=== PATIENT | male | born 1970 | race Caucasian/White ===

== ENCOUNTER 2016-06-30 15:16 | Emergency (ER) | payer BC, OTHER ==
[2016-06-30] MEDS ORDERED: NS 500 ML IV ONE (15:22)
--- NOTE | 2016-06-30 15:26 | EDPHY ---
H & P HPI/ROS: CHIEF COMPLAINT: Patient the fall memory loss, possible trauma HISTORY OF PRESENT ILLNESS: Patient is a 45-year-old male who presents to the emergency department via EMS. The patient was found in [place] trees while [place] at [employer]. Patient does not know what happened. 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 EMS transported the patient to the emergency department. Patient does not recall events in route. He denied complaints to EMS. His glucose was 117. The patient's did see him [place] the bottom [place] the [place]. She had lost him on the way down. She states that he has had 6 drinks today. The patient is without complaint. No headache or neck pain. No chest pain or shortness of breath. No abdominal pain. No nausea or vomiting. Patient denies pelvic pain or extremity pain. Patient denies any alcohol or drug use today. REVIEW OF SYSTEMS: My complete review of systems is negative except as mentioned in the HPI. Past Medical/Surgical History: Concussion Past surgical history: Denies Social history: The patient is . The patient does not smoke. Physical Exam: Vitals noted GENERAL: No acute distress, alert. HEAD: No evidence of trauma. EYES: PERRLA, EOMI, normal to inspection. ENT: Airway intact, no dental or oral injury, no malocclusion, no hemotympanum , normal external examination. NECK: The trachea is midline. There is no crepitus. The C-spine is nontender. RESPIRATORY: Clear to auscultation bilaterally, no rales, rhonchi or wheezing. There is no crepitus or palpable rib fractures. CVS: Regular rate and rhythm, no rubs, murmurs, or gallops. ABDOMEN: Soft, nontender, nondistended, normal bowel sounds, no bruising or abrasions. Pelvis: Stable. No tenderness palpation. Hips full range of motion. BACK: Normal to inspection, no spinal tenderness, no spinal step off, no notable bruising or abrasions. SKIN: Normal color, warm, dry. No pallor or diaphoresis. EXTREMITIES: Right upper extremity: Atraumatic. No visible signs of trauma. No tenderness palpation. Neurovascular intact distally. Left upper extremity: Atraumatic. No visible signs of trauma. No tenderness palpation. Neurovascular intact distally. Right lower extremity: Atraumatic. No visible signs of trauma. No tenderness palpation. Neurovascular intact distally. Left lower extremity: Atraumatic. No visible signs of trauma. No tenderness palpation. Neurovascular intact distally. Atraumatic, neurovascularly intact distally in all extremities, pelvis is stable , hips with full range of motion, moves all extremities freely. NEURO/PSYCH: Alert and oriented x 3, GCS 15, slightly slurred speech, normal motor sensory exam. Constitutional: Initial Vital Signs Temperature (C) 36.5 C 06/30/16 15:31 Heart Rate 83 06/30/16 15:31 Respiratory Rate 16 06/30/16 15:31 Blood Pressure 147/104 H 06/30/16 15:31 O2 Sat (%) 99 06/30/16 15:31 O2 Delivery Mode Room Air Allergies/Adverse Reactions: No Known Allergies Allergy (Unverified 06/30/16 15:30) Home Medications: Medication Instructions Recorded Atorvastatin Calcium 06/30/16 Claritin 06/30/16 Omeprazole 06/30/16 Medical Decision Making ED Course/Re-evaluation: I met EMS on arrival. I took report from the bridge ironworker. Discussed the plan with the patient and answered all his questions. C-spine precautions were maintained. Patient had a CT of the head and neck ordered. Laboratory studies were ordered. The time of onset is unclear. The patient was found in the trees. Rechecked the patient on numerous occasions. He was stable throughout his stay. His arrived in the emergency department. She confirm the report. I discussed the CT results with her. I also discussed the laboratory studies. I discussed the plan for serial examinations. Patient did well during his stay. He metabolized his alcohol appropriately. I rechecked the patient numerous occasions. He was doing well on recheck. He ambulated without difficulty. His C-collar was removed. He had no midline C- spine tenderness palpation with full range of motion. No focal neurologic deficits. On recheck prior to leaving patient had a nonfocal neuro exam. He was doing well. No new complaints. He is given warnings prior to leaving. He will return with worsening symptoms. Differential Diagnosis: My differential includes but is not limited to subarachnoid hemorrhage, subdural hematoma, epidural hematoma, spinal injury, hemorrhagic CVA, ischemic CVA, dissection, electrolyte abnormality, sugar abnormality. I doubt acute chest, abdomen or pelvis. - Data Points Laboratory Results: Laboratory Results 06/30/16 15:30 06/30/16 15:30 06/30/16 06/30/16 06/30/16 15:30 15:30 15:30 WBC RBC Hgb Hct MCV MCH MCHC RDW Plt Count MPV Neut % (Auto) Lymph % (Auto) Nash % (Auto) Eos % (Auto) Baso % (Auto) Nucleat RBC Rel Count Absolute Neuts (auto) Absolute Lymphs (auto) Absolute Monos (auto) Absolute Eos (auto) Absolute Basos (auto) Absolute Nucleated RBC Immature Gran % Immature Gran # PT 13.3 SEC SEC (12.0-15.0) INR 1.02 (0.83-1.16) APTT 24.8 SEC SEC (23.0-38.0) Sodium 146 mEq/L H mEq/L (134-144) Potassium 4.2 mEq/L mEq/L (3.5-5.2) Chloride 111 mEq/L H mEq/L (97-110) Carbon Dioxide 23 mEq/l mEq/l (22-31) Anion Gap 12 mEq/L mEq/L (8-16) BUN 14 mg/dL mg/dL (7-23) Creatinine 1.0 mg/dL mg/dL (0.7-1.3) Estimated GFR > 60 Glucose 96 mg/dL mg/dL (70-100) Calcium 9.7 mg/dL mg/dL (8.5-10.4) Urine Color PALE YELLOW Urine Appearance CLEAR Urine pH 7.0 (5.0-7.5) Ur Specific [place] 1.003 (1.002-1.030) Urine Protein NEGATIVE (NEGATIVE) Urine Ketones NEGATIVE (NEGATIVE) Urine Blood NEGATIVE (NEGATIVE) Urine Nitrate NEGATIVE (NEGATIVE) Urine Bilirubin NEGATIVE (NEGATIVE) Urine Urobilinogen NEGATIVE EU EU (0.2-1.0) Ur Leukocyte Esterase NEGATIVE (NEGATIVE) Urine Glucose NEGATIVE (NEGATIVE) Urine Opiates Screen NEGATIVE (NEGATIVE) Urine Barbiturates NEGATIVE (NEGATIVE) Ur Phencyclidine Scrn NEGATIVE (NEGATIVE) Ur Amphetamine Screen NEGATIVE (NEGATIVE) U Benzodiazepines Scrn NEGATIVE (NEGATIVE) Urine Cocaine Screen NEGATIVE (NEGATIVE) U Marijuana (THC) Screen NEGATIVE (NEGATIVE) Ethyl Alcohol 219 mg/dL H mg/dL (0-10) 06/30/16 15:30 WBC 11.26 10^3/uL H 10^3/uL (3.80-9.50) RBC 4.83 10^6/uL 10^6/uL (4.40-6.38) Hgb 16.2 g/dL g/dL (13.7-17.5) Hct 44.4 % % (40.0-51.0) MCV 91.9 fL fL (81.5-99.8) MCH 33.5 pg pg (27.9-34.1) MCHC 36.5 g/dL g/dL (32.4-36.7) RDW 12.1 % % (11.5-15.2) Plt Count 210 10^3/uL 10^3/uL (150-400) MPV 10.4 fL fL (8.7-11.7) Neut % (Auto) 82.1 % H % (39.3-74.2) Lymph % (Auto) 12.7 % L % (15.0-45.0) Nash % (Auto) 3.8 % L % (4.5-13.0) Eos % (Auto) 0.6 % % (0.6-7.6) Baso % (Auto) 0.4 % % (0.3-1.7) Nucleat RBC Rel Count 0.0 % % (0.0-0.2) Absolute Neuts (auto) 9.23 10^3/uL H 10^3/uL (1.70-6.50) Absolute Lymphs (auto) 1.43 10^3/uL 10^3/uL (1.00-3.00) Absolute Monos (auto) 0.43 10^3/uL 10^3/uL (0.30-0.80) Absolute Eos (auto) 0.07 10^3/uL 10^3/uL (0.03-0.40) Absolute Basos (auto) 0.05 10^3/uL 10^3/uL (0.02-0.10) Absolute Nucleated RBC 0.00 10^3/uL 10^3/uL (0-0.01) Immature Gran % 0.4 % % (0.0-1.1) Immature Gran # 0.05 10^3/uL 10^3/uL (0.00-0.10) PT INR APTT Sodium Potassium Chloride Carbon Dioxide Anion Gap BUN Creatinine Estimated GFR Glucose Calcium Urine Color Urine Appearance Urine pH Ur Specific [place] Urine Protein Urine Ketones Urine Blood Urine Nitrate Urine Bilirubin Urine Urobilinogen Ur Leukocyte Esterase Urine Glucose Urine Opiates Screen Urine Barbiturates Ur Phencyclidine Scrn Ur Amphetamine Screen U Benzodiazepines Scrn Urine Cocaine Screen U Marijuana (THC) Screen Ethyl Alcohol Medications Given: Discontinued Medications Sodium Chloride (Ns) 500 mls @ 0 mls/hr IV ONCE ONE PRN Reason: Wide Open Stop: 06/30/16 15:23 Last Admin: 06/30/16 15:35 Dose: 500 mls Departure - Departure Disposition: Home, Routine, Self-Care Clinical Impression: Alcohol intoxication Qualifiers: Complication of substance-induced condition: uncomplicated Qualified Code(s): F10.120 - Alcohol abuse with intoxication, uncomplicated Condition: Good Instructions: Alcohol Intoxication (ED) Additional Instructions: Return with increasing headache, neck pain, weakness, numbness or any other concerns. Referrals: Primary doctor, home state [Other] - 3-4 days, if not improved
[2016-06-30 15:35] VITALS: RESP 16; TEMP 97.7
[2016-06-30 15:36] LABS: % IMMATURE GRANULYOCYTES 0.4 % (0.0-1.1); ABSOLUTE IMMATURE GRANULOCYTES 0.05 10^3/uL (0.00-0.10); ADD DIFF? NO; ADD MORPH? NO; ADD SCAN? NO; ATYPICAL LYMPHOCYTE FLAG 0 (0-99); FRAGMENT RBC FLAG 0 (0-99); HEMATOCRIT 44.4 % (40.0-51.0); HEMOGLOBIN 16.2 g/dL (13.7-17.5); LEFT SHIFT FLG 0 (0-99); LIPEMIA HEMOLYSIS FLAG 90 (0-99); MEAN CELL HEMOGLOBIN 33.5 pg (27.9-34.1); MEAN CELL HEMOGLOBIN CONCENTR. 36.5 g/dL (32.4-36.7); MEAN CELL VOLUME 91.9 fL (81.5-99.8); MEAN PLATELET VOLUME 10.4 fL (8.7-11.7); PLATELET CLUMPS FLAG 10 (0-99); PLATELET COUNT 210 10^3/uL (150-400); RED BLOOD CELL COUNT 4.83 10^6/uL (4.40-6.38); RED CELL DISTRIBUTION WIDTH 12.1 % (11.5-15.2)
[2016-06-30 15:49] LABS: APTT 24.8 SEC (23.0-38.0); INR 1.02 (0.83-1.16); PROTIME(PATIENT) 13.3 SEC (12.0-15.0)
[2016-06-30 15:52] LABS: ANION GAP 12 mEq/L (8-16); CALCIUM 9.7 mg/dL (8.5-10.4); CARBON DIOXIDE 23 mEq/l (22-31); CHLORIDE 111 mEq/L (97-110); ETHANOL SERUM 219 mg/dL (0-10); GLOMERULAR FILTRATION RATE > 60; GLUCOSE 96 mg/dL (70-100); POTASSIUM 4.2 mEq/L (3.5-5.2); SODIUM 146 mEq/L (134-144)
[2016-06-30 16:34] LABS: COLOR PALE YELLOW; LEUKOCYTE ESTERASE,URINE NEGATIVE (NEGATIVE); NITRITE,URINE NEGATIVE (NEGATIVE)
[2016-06-30 18:28] VITALS: BP 123/78; PULSE 73; O2SAT 97
== END 2016-06-30 18:28 | disposition home or self-care (01) ==
DX: F10.120 Alcohol abuse with intoxication, uncomplicated (principal)
CPT/HCPCS: 80305; G0480